=== PATIENT | male | born 1980 | race Caucasian/White ===

== ENCOUNTER → 2018-03-02 | Outpatient (CLI) | payer MEDICAID ==
--- NOTE | 2018-03-03 14:43 | CT ---
EXAM DESCRIPTION: Thoracic Spine CLINICAL HISTORY: 37 years Male, M54.2 M54.9 COMPARISON: None. TECHNIQUE: This exam was performed according to our departmental dose-optimization program, which includes automated exposure control, adjustment of the mA and/or kV according to patient size and/or use of iterative reconstruction technique. FINDINGS: CT of the thoracic spine demonstrates normal alignment with normal kyphosis. There are multilevel Schmorl's nodes involving the endplates. There is mild loss of vertebral height and anterior wedging of the T7 vertebral body. Consistent with old mild compression deformity. No retropulsed bone or acute fracture line or paraspinous soft tissue density is evident. The facet joints and costovertebral articulations appear normal. A large or focal lateralizing disc herniation at any level is not apparent. No significant scoliosis of the spine is noted. Mild anterior degenerative lipping particularly at the T8-9 and T9-10 levels are noted anteriorly on the right. No compromise of the bony spinal canal is noted. IMPRESSION: 1. Multilevel Schmorl's nodes involving the vertebral endplates without evidence of retropulsed bone or compromise of the spinal canal. 2. Mild loss of vertebral height and anterior wedging T7 vertebral body suggesting old mild compression deformity. Approximate 20% loss of height is present. 3. No definite disc herniation or lateralizing soft tissue mass within the canal is noted. Electronically signed by: Marquez Jorge MD 03/03/2018 2:41 PM SHIRT FINISHER
--- NOTE | 2018-03-03 14:58 | CT ---
EXAM DESCRIPTION: Cervical Spine CLINICAL HISTORY: M54.2 M54.9 COMPARISON: July 12, 2015. TECHNIQUE: Cervical CT is performed with thin-section axial imaging. MPRs are created and reviewed as well. This exam was performed according to our departmental dose-optimization program, which includes automated exposure control, adjustment of the mA and/or kV according to patient size and/or use of iterative reconstruction technique. FINDINGS: CT of cervical spine compared to prior 2016 examination. Normal alignment of the vertebral column with slight straightening is present but improved from prior study. There is anterior hypertrophic degenerative spurs predominantly on the left at C3-4 and to a lesser extent on the right and minimally on the left at C4-5. This is unchanged from prior study. Vertebral and disc height is maintained in the posterior elements appear intact with no significant facet arthropathy noted. No significant posterior spurs are noted. The bony spine is intact. No fracture or deformity or bony compromise of the canal at any level is present. Craniocervical junction and the odontoid and C1-2 articulation are normal. Disc contours at each level from C2-C3 through C6-7 is normal with the disc contour at C7-T1 not well delineated. IMPRESSION: Essentially normal CT examination of the cervical spine with slight straightening of the spine and mild anterior degenerative spurring at C3-4 and C4-5, unchanged from 2016. No fracture or malalignment or disc herniation seen. Electronically signed by: Marquez Jorge MD 03/03/2018 2:57 PM TRAIN CALLER
== END ==
LOC: CT 14:00
PROVIDERS: ATTEND General Practice
DX: M54.2 Cervicalgia (principal); M54.9 Dorsalgia, unspecified; M51.44 Schmorl's nodes, thoracic region